=== PATIENT | female | born 1955 | race Caucasian/White ===

== ENCOUNTER 2017-12-24 15:50 | Inpatient (IN) | payer OTHER ==
--- NOTE | 2017-12-24 16:59 | ED ---
General Adult HPI - General Chief complaint: Abdominal Pain Stated complaint: Not eating Time Seen by Provider: 12/24/17 16:16 Source: patient, family, RN notes reviewed Mode of arrival: ambulatory Limitations: no limitations - History of Present Illness Initial comments: This is a 62-year-old female with a history of smoking a history of cholecystectomy in the past who was apparently sent here by a family doctor for evaluation for a PEG tube in for admission. She apparently does not eat very much and this is gone on for years she has had a 7 pound weight loss in the last week or so she weighs 80 pounds. She states she has had fevers chills sweats slight cough no phlegm no dysuria hematuria. She states she does have pain when she eats. Per family information was supposedly been faxed here none is available at this time. She has been seen at [facility] in the past. No known history of thyroid disease no other modifying factors. - Related Data Home Medications Medication Instructions Recorded Confirmed Cyclobenzaprine [Flexeril] 10 mg PO BID PRN 12/24/17 12/24/17 Dicyclomine [Bentyl] 40 mg PO QID 12/24/17 12/24/17 Famotidine [Pepcid] 20 mg PO HS 12/24/17 12/24/17 Gabapentin [Neurontin] 300 mg PO BID 12/24/17 12/24/17 Loperamide [Imodium] 2 mg PO QID PRN 12/24/17 12/24/17 Metoprolol Succinate [Toprol XL] 25 mg PO DAILY 12/24/17 12/24/17 Ondansetron HCl [Zofran] 8 mg PO BID PRN 12/24/17 12/24/17 Pravastatin Sodium [Pravachol] 10 mg PO HS 12/24/17 12/24/17 Sennosides-Docusate Sodium 2 tab PO DAILY PRN 12/24/17 12/24/17 [Senokot-S] Sertraline [Zoloft] 100 mg PO DAILY 12/24/17 12/24/17 Allergies Allergy/AdvReac Type Severity Reaction Status Date / Time Penicillins Allergy Unknown Verified 12/24/17 16:38 Review of Systems ROS Statement: Those systems with pertinent positive or pertinent negative responses have been documented in the HPI. ROS Other: All systems not noted in ROS Statement are negative. Past Medical History Past Medical History: No Reported History History of Any Multi-Drug Resistant Organisms: None Reported Past Surgical History: Section, Cholecystectomy Past Psychological History: No Psychological Hx Reported Smoking Status: Current every day smoker Past Alcohol Use History: None Reported Past Drug Use History: None Reported General Exam - General Exam Comments Initial Comments: This is a well-developed asthenic appearing female who does appear did demonstrate some wasting and is awake and alert Limitations: no limitations General appearance: alert Head exam: Present: atraumatic, normocephalic, normal inspection Eye exam: Present: normal appearance, PERRL, EOMI. Absent: scleral icterus, conjunctival injection, periorbital swelling ENT exam: Present: mucous membranes dry Neck exam: Present: normal inspection. Absent: tenderness, meningismus, lymphadenopathy Respiratory exam: Present: normal lung sounds bilaterally. Absent: respiratory distress, wheezes, rales, rhonchi, stridor Cardiovascular Exam: Present: regular rate, normal rhythm, normal heart sounds. Absent: systolic murmur, diastolic murmur, rubs, gallop, clicks GI/Abdominal exam: Present: soft, normal bowel sounds. Absent: distended, tenderness, guarding, rebound, rigid Extremities exam: Present: normal inspection, full ROM, normal capillary refill. Absent: tenderness, pedal edema, joint swelling, calf tenderness Back exam: Present: normal inspection Neurological exam: Present: alert, oriented X3, CN II-XII intact Psychiatric exam: Present: normal affect, normal mood Skin exam: Present: warm, dry, intact, normal color. Absent: rash Course Vital Signs 12/24/17 12/24/17 12/24/17 16:07 19:18 19:29 Temperature 98.5 F Pulse Rate 78 55 L Pulse Rate [ 62 Right Sitting Pulse Oximetery ] Pulse Rate [ 55 L Right Standing Pulse Oximetery ] Pulse Rate [ 56 L Right Supine Pulse Oximetery ] Respiratory 22 18 Rate Blood Pressure 102/64 100/56 Blood Pressure 112/56 [Right Arm Sitting] Blood Pressure 88/58 [Right Arm Standing] Blood Pressure 124/59 [Right Arm Supine] O2 Sat by Pulse 97 98 Oximetry - Reevaluation(s) Reevaluation #1: 12/24/17 21:03 The patient was complaining of lower abdominal pain but she was also noted be eating a donut at the time. Additionally the patient did not do well on her orthostatic changes. EKG Findings - EKG Results: EKG: interpreted by ZENA, sinus rhythm (Sinus rhythm a 61. Interval 134 QRS duration 70 QT since QTC of 14/420 possible left atrial enlargement anterior changes are nonspecific with poor R-wave progression) Medical Decision Making - Medical Decision Making I did discuss findings with patient and her family member. Patient will be admitted for IV hydration and evaluation of failure to thrive. I did discuss the case with Dr. Scott - Lab Data Result diagrams: 12/24/17 17:20 12/24/17 17:20 Lab Results 12/24/17 12/24/17 12/24/17 Range/Units 17:15 17:20 17:20 WBC (3.8-10.6) k/uL RBC (3.80-5.40) m/uL Hgb (11.4-16.0) gm/dL Hct (34.0-46.0) % MCV (80.0-100.0) fL MCH (25.0-35.0) pg MCHC (31.0-37.0) g/dL RDW (11.5-15.5) % Plt Count (150-450) k/uL Neutrophils % % Lymphocytes % % Monocytes % % Eosinophils % % Basophils % % Neutrophils # (1.3-7.7) k/uL Lymphocytes # (1.0-4.8) k/uL Monocytes # (0-1.0) k/uL Eosinophils # (0-0.7) k/uL Basophils # (0-0.2) k/uL Sodium 137 (137-145) mmol/L Potassium 4.5 (3.5-5.1) mmol/L Chloride 100 (98-107) mmol/L Carbon Dioxide 27 (22-30) mmol/L Anion Gap 10 mmol/L BUN 22 H (7-17) mg/dL Creatinine 0.90 (0.52-1.04) mg/dL Est GFR (CKD-EPI)AfAm 80 (>60 ml/min/1.73 sqM) Est GFR (CKD-EPI)NonAf 70 (>60 ml/min/1.73 sqM) Glucose 92 (74-99) mg/dL Plasma Lactic Acid Ric (0.7-2.0) mmol/L Calcium 9.2 (8.4-10.2) mg/dL Magnesium 2.5 H (1.6-2.3) mg/dL Total Bilirubin 0.1 L (0.2-1.3) mg/dL AST 24 (14-36) U/L ALT 27 (9-52) U/L Alkaline Phosphatase 71 (38-126) U/L Total Creatine Kinase 42 (30-135) U/L CK-MB (CK-2) <0.2 (0.0-2.4) ng/mL CK-MB (CK-2) Rel Index Troponin I <0.012 (0.000-0.034) ng/mL Total Protein 6.3 (6.3-8.2) g/dL Albumin 3.7 (3.5-5.0) g/dL Amylase 63 (30-110) U/L Lipase 108 (23-300) U/L TSH 0.957 (0.465-4.680) mIU/L Urine Color Light Yellow Urine Appearance Clear (Clear) Urine pH 6.0 (5.0-8.0) Ur Specific [place] 1.007 (1.001-1.035) Urine Protein Negative (Negative) Urine Glucose (UA) Negative (Negative) Urine Ketones Negative (Negative) Urine Blood Negative (Negative) Urine Nitrite Negative (Negative) Urine Bilirubin Negative (Negative) Urine Urobilinogen <2.0 (<2.0) mg/dL Ur Leukocyte Esterase Small H (Negative) Urine RBC 1 (0-5) /hpf Urine WBC 3 (0-5) /hpf Ur Squamous Epith Cells 7 H (0-4) /hpf Urine Bacteria Rare H (None) /hpf 12/24/17 12/24/17 Range/Units 17:20 17:20 WBC 10.8 H (3.8-10.6) k/uL RBC 4.55 (3.80-5.40) m/uL Hgb 14.1 (11.4-16.0) gm/dL Hct 43.5 (34.0-46.0) % MCV 95.6 (80.0-100.0) fL MCH 30.9 (25.0-35.0) pg MCHC 32.3 (31.0-37.0) g/dL RDW 13.4 (11.5-15.5) % Plt Count 374 (150-450) k/uL Neutrophils % 70 % Lymphocytes % 22 % Monocytes % 5 % Eosinophils % 1 % Basophils % 0 % Neutrophils # 7.5 (1.3-7.7) k/uL Lymphocytes # 2.4 (1.0-4.8) k/uL Monocytes # 0.5 (0-1.0) k/uL Eosinophils # 0.1 (0-0.7) k/uL Basophils # 0.0 (0-0.2) k/uL Sodium (137-145) mmol/L Potassium (3.5-5.1) mmol/L Chloride (98-107) mmol/L Carbon Dioxide (22-30) mmol/L Anion Gap mmol/L BUN (7-17) mg/dL Creatinine (0.52-1.04) mg/dL Est GFR (CKD-EPI)AfAm (>60 ml/min/1.73 sqM) Est GFR (CKD-EPI)NonAf (>60 ml/min/1.73 sqM) Glucose (74-99) mg/dL Plasma Lactic Acid Ric 1.1 (0.7-2.0) mmol/L Calcium (8.4-10.2) mg/dL Magnesium (1.6-2.3) mg/dL Total Bilirubin (0.2-1.3) mg/dL AST (14-36) U/L ALT (9-52) U/L Alkaline Phosphatase (38-126) U/L Total Creatine Kinase (30-135) U/L CK-MB (CK-2) (0.0-2.4) ng/mL CK-MB (CK-2) Rel Index Troponin I (0.000-0.034) ng/mL Total Protein (6.3-8.2) g/dL Albumin (3.5-5.0) g/dL Amylase (30-110) U/L Lipase (23-300) U/L TSH (0.465-4.680) mIU/L Urine Color Urine Appearance (Clear) Urine pH (5.0-8.0) Ur Specific [place] (1.001-1.035) Urine Protein (Negative) Urine Glucose (UA) (Negative) Urine Ketones (Negative) Urine Blood (Negative) Urine Nitrite (Negative) Urine Bilirubin (Negative) Urine Urobilinogen (<2.0) mg/dL Ur Leukocyte Esterase (Negative) Urine RBC (0-5) /hpf Urine WBC (0-5) /hpf Ur Squamous Epith Cells (0-4) /hpf Urine Bacteria (None) /hpf - Radiology Data Radiology results: report reviewed (I did review the imaging and reports retained fecal matter is noted), image reviewed Disposition Clinical Impression: Failure to thrive, Dehydration, Orthostatic hypotension Disposition: ADMITTED IP TO THIS [facility] Condition: Stable Referrals: Nonstaff,Physician [Primary Care Provider] - 1-2 days
[2017-12-24 17:23] LABS: Appearance,Urine Clear (Clear); Bacteria,Urine Rare /hpf; Bilirubin,Urine Negative (Negative); Blood,Urine Negative (Negative); Color,Urine Light Yellow; Glucose,Urine (UA) Negative (Negative); Ketones,Urine Negative (Negative); Leukocyte Esterase,Urine Small (Negative); Nitrite,Urine Negative (Negative); Protein,Urine Negative (Negative); RBC,Urine 1 /hpf (0-5); Specific Gravity,Urine 1.007 (1.001-1.035); Squamous Epithelial Cell,Urine 7 /hpf (0-4); Urobilinogen,Urine <2.0 mg/dL (<2.0); WBC,Urine 3 /hpf (0-5)
[2017-12-24 17:31] LABS: Basophils % (A) 0 %; Eosinophils # (A) 0.1 k/uL (0-0.7); Eosinophils % (A) 1 %; HCT 43.5 % (34.0-46.0); HGB 14.1 gm/dL (11.4-16.0); Lymphocytes # (A) 2.4 k/uL (1.0-4.8); Lymphocytes % (A) 22 %; MCH 30.9 pg (25.0-35.0); MCHC 32.3 g/dL (31.0-37.0); MCV 95.6 fL (80.0-100.0); Mean Platelet Volume 6.6; Monocytes # (A) 0.5 k/uL (0-1.0); Monocytes % (A) 5 %; Neutrophils # (A) 7.5 k/uL (1.3-7.7); Neutrophils % (A) 70 %; Platelet Count 374 k/uL (150-450); RBC 4.55 m/uL (3.80-5.40); RDW 13.4 % (11.5-15.5); WBC 10.8 k/uL (3.8-10.6)
[2017-12-24 17:48] LABS: Albumin 3.7 g/dL (3.5-5.0); Calcium 9.2 mg/dL (8.4-10.2); Magnesium 2.5 mg/dL (1.6-2.3); Potassium 4.5 mmol/L (3.5-5.1); Total Bilirubin 0.1 mg/dL (0.2-1.3); Total Protein 6.3 g/dL (6.3-8.2)
[2017-12-24 17:54] LABS: Creatine Kinase 42 U/L (30-135)
[2017-12-24 18:08] LABS: Creatine Kinase MB <0.2 ng/mL (0.0-2.4); Troponin I <0.012 ng/mL (0.000-0.034)
--- NOTE | 2017-12-24 18:59 | XR ---
EXAMINATION TYPE: XR chest 2V DATE OF EXAM: 12/24/2017 COMPARISON: NONE HISTORY: Cough TECHNIQUE: Frontal and lateral views of the chest are obtained. FINDINGS: Heart and mediastinum are normal. Lungs are clear of infiltrate. There is pulmonary hyperi nflation. Bony thorax is intact. IMPRESSION: There is some COPD. No active cardiopulmonary disease.
--- NOTE | 2017-12-24 19:00 | XR ---
EXAMINATION TYPE: XR KUB DATE OF EXAM: 12/24/2017 COMPARISON: NONE HISTORY: Abdominal pain TECHNIQUE: 2 views FINDINGS: There is no sign of intestinal obstruction or pneumoperitoneum. Fecal pattern is normal. Th ere is no evidence of a mass. There are clips apparently from cholecystectomy. There are no pathologi c calcifications over the kidneys. IMPRESSION: Nonacute abdomen.
--- NOTE | 2017-12-24 19:56 | CT ---
EXAMINATION TYPE: CT abdomen pelvis w con DATE OF EXAM: 12/24/2017 COMPARISON: NONE HISTORY: Abdominal pain and weight loss. CT DLP: 216.9 mGycm Automated exposure control for dose reduction was used. TECHNIQUE: Helical acquisition of images was performed from the lung bases through the pelvis. CONTRAST: Performed without Oral Contrast and with IV Contrast, patient injected with 100 mL of Isovue 300. FINDINGS: Lung bases are clear. There is no pleural effusion. Heart size is normal. Liver spleen pancreas appear normal. There are clips from cholecystectomy. Bile ducts are not dilated . Kidneys show satisfactory contrast opacification. There is no hydronephrosis. There is no adrenal mas s. There is no retroperitoneal adenopathy. There is retained fecal material throughout the colon. Oscar dder distends smoothly. There is no evidence of a pelvic mass. I see no bony destructive process. Hys terectomy is noted. There is no sign of free air. Abdominal aorta is atheromatous. Appendix is not se en. There is no sign of appendicitis. There is no intestinal wall thickening. IMPRESSION: MODERATE CONSTIPATION.
[2017-12-24] MEDS ORDERED: ACETAMINOPHEN TAB 325 MG TAB PO PRN (21:05)
[2017-12-24] MEDS ORDERED: NALOXONE 0.4 MG/ML 1 ML VIAL IV PRN (21:05)
[2017-12-24] MEDS ORDERED: SODIUM CHLORIDE 0.9% 500 ML IV STA (21:06)
[2017-12-24] MEDS: SODIUM CHLORIDE 0.9% 1,000 ML IV SCH (21:39)
[2017-12-24 22:28] VITALS: BMI 13.6
[2017-12-24] MEDS ORDERED: SENNOSIDES-DOCUSATE SODIUM 1 EACH TAB PO PRN (22:33)
[2017-12-24] MEDS ORDERED: COSYNTROPIN 0.25 MG VIAL IVP ONE (23:01)
--- NOTE | 2017-12-24 23:08 | P.HPIM ---
History of Present Illness H&P Date: 12/24/17 Chief Complaint: Failure to thrive 62-year-old female with history of hypertension and CAD. Patient transferred from [place] to our hospital for evaluation for PEG tube insertion due to failure to thrive. Patient's telling me that over the past year she's been suffering from frequent constipation and abdominal pain which was preventing her from eating. She said every time she eats she will get constipated and would suffer so she just quit eating. She has lost over 40 pounds over the past year. She reported that her dad had been diagnosed with colon cancer at age of 72. She had a colonoscopy done a year ago and was found to have multiple polyps but there is no report of cancer. Patient otherwise currently denies any chest pain or trouble breathing denies any dizziness or lightheadedness she denies any nausea or vomiting she denies any GI bleeding. In the emergency department CAT scan of the abdomen was performed showed constipation. Her blood work was pre-much unremarkable. However her orthostatic vital signs were positive for which she was admitted under observation for further testing and evaluation and to receive some IV fluids. Patient reports that her normal bowel habits is once a week but this could be also due to not eating. Patient also reports vomiting once daily days ago which was yellowish in color. Denies any coffee-ground vomiting or blood. Patient is a heavy smoker but she denies any hemoptysis or shortness of breath. She currently reports abdominal pain on the right side of the abdomen 10 out of 10 severity colicky comes and goes nonradiating no relieving or aggravating factor usually aggravated by food she's not eating at this time. Patient also admits to hyperpigmentation of her skin. Review of Systems Pertinent positives as noted in HPI. All other systems were reviewed and are negative Past Medical History Past Medical History: No Reported History, Coronary Artery Disease (CAD), Hypertension History of Any Multi-Drug Resistant Organisms: None Reported Past Surgical History: Section, Cholecystectomy Past Psychological History: No Psychological Hx Reported Smoking Status: Current every day smoker Past Alcohol Use History: None Reported Past Drug Use History: None Reported - Past Family History Father Additional Family Medical History / Comment(s): Colon cancer at age of 72 Medications and Allergies Home Medications and Allergies Comment(s): Review Home Medications Medication Instructions Recorded Confirmed Type Cyclobenzaprine [Flexeril] 10 mg PO BID PRN 12/24/17 12/24/17 History Dicyclomine [Bentyl] 40 mg PO QID 12/24/17 12/24/17 History Famotidine [Pepcid] 20 mg PO HS 12/24/17 12/24/17 History Gabapentin [Neurontin] 300 mg PO BID 12/24/17 12/24/17 History Loperamide [Imodium] 2 mg PO QID PRN 12/24/17 12/24/17 History Metoprolol Succinate [Toprol XL] 25 mg PO DAILY 12/24/17 12/24/17 History Ondansetron HCl [Zofran] 8 mg PO BID PRN 12/24/17 12/24/17 History Pravastatin Sodium [Pravachol] 10 mg PO HS 12/24/17 12/24/17 History Sennosides-Docusate Sodium 2 tab PO DAILY PRN 12/24/17 12/24/17 History [Senokot-S] Sertraline [Zoloft] 100 mg PO DAILY 12/24/17 12/24/17 History Allergies Allergy/AdvReac Type Severity Reaction Status Date / Time Penicillins Allergy Unknown Verified 12/24/17 16:38 Physical Exam Vitals: Vital Signs Temp Pulse Pulse Pulse Pulse Resp BP 12/24/17 21:50 93/56 12/24/17 21:39 97.6 F 53 L 18 87/52 12/24/17 19:29 62 55 L 56 L 12/24/17 19:18 55 L 18 100/56 12/24/17 16:07 98.5 F 78 22 102/64 BP BP BP Pulse Ox 12/24/17 21:50 12/24/17 21:39 99 12/24/17 19:29 112/56 88/58 124/59 12/24/17 19:18 98 12/24/17 16:07 97 Intake and Output 12/24/17 12/24/17 12/24/17 06:59 14:59 22:59 Other: Voiding Method Toilet Weight 36 kg Constitutional: No acute distress, conversant, pleasant, cachectic Eyes: Anicteric sclerae, moist conjunctiva, no lid-lag Pupils equal round reactive to light ENMT: NC/AT Oropharynx clear, no erythema, or exudates, very poor oral hygiene Neck: Supple, FROM, no masses, or JVD No carotid bruits No thyromegaly Lungs: Clear to auscultation Clear to percussion Normal respiratory effort, no accessory muscle use Cardiovascular: Heart regular in rate and rhythm, No murmurs, gallops, or rubs No peripheral edema Abdominal: Soft Discomfort to palpation of the right lower quadrant of the abdomen and right flank, no guarding, rebound or rigidity Abdomen moving with respiration Normoactive bowel sounds No hepatomegaly, No splenomegaly No palpable mass No abdominal wall hernia noted Skin: Hyperpigmentation of patient skin sparing hairline Normal temperature, tone, texture, turgor No induration No subcutaneous nodules No rash, lesions No ulcers Extremities: No digital cyanosis No clubbing Pedal pulses intact and symmetrical Radial pulses intact and symmetrical No calf tenderness Psychiatric: Alert and oriented to person, place and time Appropriate affect fair judgment Neuro Muscles Strength 4/5 in all 4 extremities Sensation to light touch grossly present throughout Cranial nerves II-XII grossly intact No focal sensory deficits Lymphatics: no palpable cervical or supraclavicular , or inguinal lymph nodes Results CBC & Chem 7: 12/24/17 17:20 12/24/17 17:20 Labs: Abnormal Lab Results - Last 24 Hours (Table) 12/24/17 12/24/17 12/24/17 Range/Units 17:15 17:20 17:20 WBC 10.8 H (3.8-10.6) k/uL BUN 22 H (7-17) mg/dL Magnesium 2.5 H (1.6-2.3) mg/dL Total Bilirubin 0.1 L (0.2-1.3) mg/dL Ur Leukocyte Esterase Small H (Negative) Ur Squamous Epith Cells 7 H (0-4) /hpf Urine Bacteria Rare H (None) /hpf Thrombosis Risk Factor Assmnt - Choose All That Apply Each Risk Factor Represents 2 Points: Age 61-74 years Thrombosis Risk Factor Assessment Total Risk Factor Score: 2 Thrombosis Risk Factor Assessment Level: Low Risk Assessment and Plan Assessment: 62-year-old female with history of CAD and hypertension, patient is admitted under observation expected to be for less than 2 nights for evaluation of failure to thrive and orthostatic hypotension with suspected [place] disease and also for evaluation for PEG tube insertion. His transfer to a facility from [place], as she saw her PCP who referred her for evaluation for PEG tube insertion due to failure to thrive it lost poor appetite. She had a CAT scan done in the ER due to abdominal pain showed constipation. Plan: #High suspicion for [place] disease Due to orthostatic hypotension Elevated potassium Skin hyperpigmentation Weight loss GI symptoms Check random cortisol level and ACTH level Check morning cortisol level Cosyntropin test in the morning followed by cortisone level after 30 and 60 minutes #Failure to thrive patient claims to have poor appetite for over a year now Patient lost 40 pounds Had colonoscopy a year ago positive for multiple polyps nor report cancer, positive history of family member with colon cancer in her father Avoid refeeding syndrome Encourage by mouth intake Follow up phosphorus, magnesium, and electrolytes #Hypertension currently with orthostatic hypotension This is possibly due to suspected [place] disease Continue metoprolol with hold parameters Patient given 1 L normal saline bolus Check morning orthostatic vitals #History of CAD Continue statin and metoprolol Start patient on aspirin #DVT prophylaxis Heparin subcu 3 times a day #Depression Continue with Zoloft Surrogate decision-maker: Patient's son Jonathan CODE STATUS: Full code Discussed with: Patient, ER, Anticipated discharge: Observation was in [address]: Home A total of 50 minutes was spent on the care of this complex patient more than 50 % of the time was spent in counseling and care coordination.
[2017-12-24] MEDS ORDERED: SODIUM CHLORIDE 0.9% 1,000 ML IV ONE (23:09)
[2017-12-24] MEDS: FAMOTIDINE 20 MG TAB PO SCH (23:27)
[2017-12-24] MEDS: DICYCLOMINE 20 MG TAB PO SCH (23:27)
[2017-12-25] MEDS: ALPRAZolam 0.25 MG TAB PO SCH ×4 (02:13→20:09)
[2017-12-25] MEDS: HYDROcodone/APAP 5-325MG 1 EACH TAB PO PRN ×4 (05:47→20:33)
[2017-12-25] MEDS ORDERED: COSYNTROPIN 0.25 MG VIAL IVP ONE ×2 (06:05)
[2017-12-25 06:52] LABS: Basophils % (A) 0 %; Eosinophils # (A) 0.1 k/uL (0-0.7); Eosinophils % (A) 2 %; HCT 36.9 % (34.0-46.0); HGB 11.9 gm/dL (11.4-16.0); Lymphocytes # (A) 1.2 k/uL (1.0-4.8); Lymphocytes % (A) 20 %; MCH 31.2 pg (25.0-35.0); MCHC 32.4 g/dL (31.0-37.0); MCV 96.4 fL (80.0-100.0); Mean Platelet Volume 7.1; Monocytes # (A) 0.4 k/uL (0-1.0); Monocytes % (A) 7 %; Neutrophils # (A) 4.3 k/uL (1.3-7.7); Neutrophils % (A) 69 %; Platelet Count 254 k/uL (150-450); RBC 3.83 m/uL (3.80-5.40); RDW 13.7 % (11.5-15.5); WBC 6.3 k/uL (3.8-10.6)
[2017-12-25 07:01] LABS: ALT 29 U/L (9-52); AST 22 U/L (14-36); Albumin 2.7 g/dL (3.5-5.0); Alkaline Phosphatase 59 U/L (38-126); Anion Gap 4 mmol/L; Blood Urea Nitrogen 16 mg/dL (7-17); Calcium 8.2 mg/dL (8.4-10.2); Carbon Dioxide 26 mmol/L (22-30); Chloride 106 mmol/L (98-107); Glucose 86 mg/dL (74-99); Magnesium 2.4 mg/dL (1.6-2.3); Phosphorus 2.9 mg/dL (2.5-4.5); Sodium 136 mmol/L (137-145); Total Bilirubin <0.1 mg/dL (0.2-1.3); Total Protein 4.9 g/dL (6.3-8.2)
[2017-12-25] MEDS: METOPROLOL SUCCINATE (ER) 25 MG TAB.ER.24H PO SCH (08:21)
[2017-12-25] MEDS: DICYCLOMINE 20 MG TAB PO SCH ×4 (08:21→20:09)
[2017-12-25] MEDS: SERTRALINE 100 MG TAB PO SCH (08:21)
[2017-12-25] MEDS: GABAPENTIN 300 MG CAP PO SCH ×2 (08:21→20:09)
[2017-12-25] MEDS: ASPIRIN 81 MG PO SCH (08:22)
[2017-12-25] MEDS: SODIUM CHLORIDE 0.9% 1,000 ML IV SCH ×2 (10:00→20:10)
--- NOTE | 2017-12-25 10:35 | P.CONS ---
History of Present Illness - Reason for Consult Consult date: 12/25/17 PEG tube evaluation Requesting physician: Ajith Scott - History of Present Illness 62-year-old female transferred from [place] with reports of chronic abdominal pain IBS-C and anorexia for several years. The symptoms have been ongoing for several years and is interfering with her oral nutrition. Patient states she had her gallbladder removed several years ago and postoperatively had increased pain and difficulty maintaining a diet keeping her weight on. She is cachectic with a BMI of 13.6. Denies hematemesis hematochezia melena. Patient states she chronically has abdominal pain fluctuating with chronic constipation and sometimes diarrhea. She reports undergoing an EGD colonoscopy within the past year for evaluation of abdominal pain and decreased appetite to her memory was unremarkable. Consult was requested for possible PEG tube insertion for nutrition support. No history of gastric or intestinal surgeries. White count 6.3. Hemoglobin 11.9. Magnesium 2.4. BUN 16 creatinine 0.8. Sodium 136. Potassium 5.0. CT abdomen reported moderate constipation. Review of Systems Constitutional: Denies fever, chills, sweats, weight gain, or loss. HEENT: Negative for migraines, blurred vision or loss, earaches, drainage, tinnitus, oral mucosal lesions, dysphagia, or odynophagia. CARDIAC: Negative for chest pain, arrhythmias, or palpitation. RESPIRATORY: Negative for shortness of breath, hemoptysis, cough, or sputum production. GI: See HPI for pertinent findings. : Negative for hematuria, urgency, frequency, polyuria, or dysuria. GYNc: Negative vaginal discharge. MUSCULOSKELETAL: Negative for muscle aches, swelling, arthritis, and arthralgias. NEUROLOGIC: Negative for stroke or TIA. ENDOCRINE: Negative for thyroid problems. SKIN: Negative for rash or itching. PSYCHIATRIC: Negative history for depression and anxiety Past Medical History Past Medical History: No Reported History, Coronary Artery Disease (CAD), Hypertension History of Any Multi-Drug Resistant Organisms: None Reported Past Surgical History: Section, Cholecystectomy Past Psychological History: No Psychological Hx Reported Smoking Status: Current every day smoker Past Alcohol Use History: None Reported Past Drug Use History: None Reported - Past Family History Father Additional Family Medical History / Comment(s): Colon cancer at age of 72 Medications and Allergies Home Medications Medication Instructions Recorded Confirmed Type Cyclobenzaprine [Flexeril] 10 mg PO BID PRN 12/24/17 12/24/17 History Dicyclomine [Bentyl] 40 mg PO QID 12/24/17 12/24/17 History Famotidine [Pepcid] 20 mg PO HS 12/24/17 12/24/17 History Gabapentin [Neurontin] 300 mg PO BID 12/24/17 12/24/17 History Loperamide [Imodium] 2 mg PO QID PRN 12/24/17 12/24/17 History Metoprolol Succinate [Toprol XL] 25 mg PO DAILY 12/24/17 12/24/17 History Ondansetron HCl [Zofran] 8 mg PO BID PRN 12/24/17 12/24/17 History Pravastatin Sodium [Pravachol] 10 mg PO HS 12/24/17 12/24/17 History Sennosides-Docusate Sodium 2 tab PO DAILY PRN 12/24/17 12/24/17 History [Senokot-S] Sertraline [Zoloft] 100 mg PO DAILY 12/24/17 12/24/17 History Allergies Allergy/AdvReac Type Severity Reaction Status Date / Time Penicillins Allergy Unknown Verified 12/24/17 16:38 Physical Exam Vitals: Vital Signs Temp Pulse Pulse Pulse Pulse Resp BP 12/25/17 06:21 97.5 F L 57 L 63 52 L 20 12/24/17 23:24 96.7 F L 51 L 20 12/24/17 21:50 93/56 12/24/17 21:39 97.6 F 53 L 18 87/52 12/24/17 19:29 62 55 L 56 L 12/24/17 19:18 55 L 18 100/56 12/24/17 16:07 98.5 F 78 22 102/64 BP BP BP Pulse Ox 12/25/17 06:21 124/68 96/63 126/66 99 12/24/17 23:24 78/36 99 12/24/17 21:50 12/24/17 21:39 99 12/24/17 19:29 112/56 88/58 124/59 12/24/17 19:18 98 12/24/17 16:07 97 Intake and Output 12/24/17 12/25/17 12/25/17 22:59 06:59 14:59 Other: Voiding Method Toilet Toilet # Voids 3 Weight 36 kg General appearance: The patient is alert, oriented, in no acute distress. Cachectic appearance. HET: Head is normocephalic and atraumatic. Pupils are equal and reactive. Oropharynx is clear without lesions. Neck: Supple without lymphadenopathy. Trachea midline. Heart: S1 S2. Regular rate and rhythm. Lungs: No crackles or wheezes are heard. Abdomen: Soft, nontender, nondistended with bowel sounds. No peritoneal signs. No palpable organomegaly or masses. Extremities: Normal skin color and turgor. No cyanosis, rash, ulceration, clubbing, or edema. Radial and pedal pulses are 2/4 bilaterally. Neurological: No focal deficits. Strength and sensation are grossly intact. Results CBC & Chem 7: 12/25/17 06:10 12/25/17 06:10 Labs: Abnormal Lab Results - Last 24 Hours (Table) 12/24/17 12/24/17 12/24/17 Range/Units 17:15 17:20 17:20 WBC 10.8 H (3.8-10.6) k/uL Sodium (137-145) mmol/L BUN 22 H (7-17) mg/dL Calcium (8.4-10.2) mg/dL Magnesium 2.5 H (1.6-2.3) mg/dL Total Bilirubin 0.1 L (0.2-1.3) mg/dL Total Protein (6.3-8.2) g/dL Albumin (3.5-5.0) g/dL Ur Leukocyte Esterase Small H (Negative) Ur Squamous Epith Cells 7 H (0-4) /hpf Urine Bacteria Rare H (None) /hpf 12/25/17 Range/Units 06:10 WBC (3.8-10.6) k/uL Sodium 136 L (137-145) mmol/L BUN (7-17) mg/dL Calcium 8.2 L (8.4-10.2) mg/dL Magnesium 2.4 H (1.6-2.3) mg/dL Total Bilirubin <0.1 L (0.2-1.3) mg/dL Total Protein 4.9 L (6.3-8.2) g/dL Albumin 2.7 L (3.5-5.0) g/dL Ur Leukocyte Esterase (Negative) Ur Squamous Epith Cells (0-4) /hpf Urine Bacteria (None) /hpf CT scan - abdomen: report reviewed (Dr. Mccarthy) Assessment and Plan (1) Cachexia Current Visit: Yes Status: Acute Code(s): R64 - CACHEXIA SNOMED Code(s): 153353747 (2) Chronic abdominal pain Current Visit: Yes Status: Acute Code(s): R10.9 - UNSPECIFIED ABDOMINAL PAIN ; G89.29 - OTHER CHRONIC PAIN SNOMED Code(s): 219098899 (3) Protein-calorie malnutrition, severe Current Visit: Yes Status: Acute Code(s): E43 - UNSPECIFIED SEVERE PROTEIN- CALORIE MALNUTRITION SNOMED Code(s): 026666061 (4) Chronic constipation Current Visit: Yes Status: Acute Code(s): K59.09 - OTHER CONSTIPATION SNOMED Code(s): 552061818 (5) History of IBS Current Visit: Yes Status: Acute Code(s): Z87.19 - PERSONAL HISTORY OF OTHER DISEASES OF THE DIGESTIVE SYSTEM SNOMED Code(s): 90640834178447 Plan: 1. PEG tube insertion was discussed with patient this time she is hesitant about insertion she is unsure if that is what she wants. Patient was advised insertion of PEG tube would not guarantee improvement in her abdominal pain or constipation. 2. Advise daily stool softeners. 3. Dietitian consult with calorie count. Ensure 3 times a day with meals. Prealbumin assessment. Endoscopic placement of feeding tube is not planned at this time we'll follow with you. 4. Continue with Ginny. Thank you for this kind referral and the opportunity to participate in the care of your patient. This consultation was discussed with Dr. Mccarthy. The impression and plan of care have been directed as dictated.
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
--- NOTE | 2017-12-25 20:06 | P.PN ---
Subjective Progress Note Date: 12/25/17 Principal diagnosis: abdominal pain and weight loss Patient is a 62-year-old female with a past medical history of coronary artery disease, hypertension, and chronic abdominal pain who was transferred to our facility from [place] for evaluation of abdominal pain and PEG tube insertion. Patient seen and examined at bedside. She states that she has been struggling with abdominal pain for the last 10-12 years. She reports multiple recent hospitalizations requiring antibiotics were they told her she had an infection, but it never gets better. She states she had a recent colonoscopy however we are unable to locate records. She reports that she is unable to eat secondary to chronic abdominal pain and that she avoids food. She denies any vomiting. She taking that she takes loperamide as an appetite stimulant. We went over her medications and she is clearly indications for the rest when I told her that Loperaminde is for diarrhea she seemed concerned. We discussed the possibility of [place]'s disease and at the time of my evaluation with her and is awaiting a call back from Dr. Enciso. Objective - Vital Signs Vital signs: Vital Signs Temp 96.8 F L 12/25/17 15:00 Pulse 63 12/25/17 15:00 Resp 18 12/25/17 15:00 BP 113/67 12/25/17 15:00 Pulse Ox 100 12/25/17 15:00 Intake & Output 12/25/17 12/25/17 12/26/17 06:59 18:59 06:59 Weight 36 kg 36 kg Other: Voiding Method Toilet # Voids 3 3 - Exam General: non toxic, no distress, ears older than stated age, cachectic Derm: Bronzed appearance of the skin with areas of vitiligo warm, dry Head: atraumatic, normocephalic, symmetric, temporal wasting Eyes: EOMI, no lid lag, anicteric sclera Mouth: no lip lesion, mucus membranes dry Cardiovascular: S1S2 reg, no murmur, positive posterior tibial pulse bilateral, Lungs: CTA bilateral, no rhonchi, no rales , no accessory muscle use Abdominal: soft, + tender to palpation epigastric, no guarding, no appreciable organomegaly Ext: no gross muscle atrophy, no edema, no contractures Neuro: CN II-XI grossly intact, no focal neuro deficits Psych: Alert, oriented, appropriate affect - Labs CBC & Chem 7: 12/25/17 06:10 12/25/17 06:10 Labs: Abnormal Lab Results - Last 24 Hours (Table) 12/25/17 Range/Units 06:10 Sodium 136 L (137-145) mmol/L Calcium 8.2 L (8.4-10.2) mg/dL Magnesium 2.4 H (1.6-2.3) mg/dL Total Bilirubin <0.1 L (0.2-1.3) mg/dL Total Protein 4.9 L (6.3-8.2) g/dL Albumin 2.7 L (3.5-5.0) g/dL Assessment and Plan Assessment: Failure to thrive with cachexia - patient does not want peg tube at this time - encourage oral intake - addisons disease ruled out, Case discussed with Dr. Enciso - Patient lost 40 pounds - Had colonoscopy a year ago positive for multiple polyps nor report cancer - Avoid refeeding syndrome Acute on chronic abdominal pain Moderate constipation - moderate constipation of CT abd and pelvis - She had EGD and colon here in 2007, no record of these at [facility] - add miralax, on senna - d/c bentyl, colace, lopermide - if no medical reason psych has suggested it may be somatic symptom disorder Orthostatic hypotension - likely due to dehydraiton - IVF - recheck in AM - history of hypertension, Continue metoprolol with hold parameters Partially treated major depression - psych recs - xanax and zoloft CAD - statin, metoprolol, ASA DVT prophylaxis: heparin Discussed with: Patient, Dr. Enciso Anticipated discharge: 24-[address]: home A total of 35 minutes was spent on the care of this complex patient more than 50 % of the time was spent in counseling and care coordination.
[2017-12-25] MEDS: FAMOTIDINE 20 MG TAB PO SCH (20:09)
[2017-12-25] MEDS: PRAVASTATIN SODIUM 20 MG TAB PO SCH (20:09)
[2017-12-25] MEDS: SENNOSIDES-DOCUSATE SODIUM 1 EACH TAB PO SCH (20:09)
[2017-12-25] MEDS: POLYETHYLENE GLYCOL 3350 17 GM POWD.PACK PO SCH (21:47)
[2017-12-26] MEDS: HYDROcodone/APAP 5-325MG 1 EACH TAB PO PRN ×5 (02:20→21:45)
[2017-12-26 08:28] LABS: HGB 11.4 gm/dL (11.4-16.0); MCH 30.6 pg (25.0-35.0); MCHC 31.7 g/dL (31.0-37.0); MCV 96.7 fL (80.0-100.0); Mean Platelet Volume 7.1; Platelet Count 269 k/uL (150-450); RBC 3.72 m/uL (3.80-5.40); RDW 13.4 % (11.5-15.5); WBC 8.9 k/uL (3.8-10.6)
[2017-12-26 08:40] LABS: Anion Gap 4 mmol/L; Blood Urea Nitrogen 10 mg/dL (7-17); Calcium 8.1 mg/dL (8.4-10.2); Carbon Dioxide 24 mmol/L (22-30); Chloride 110 mmol/L (98-107); Glucose 79 mg/dL (74-99); Magnesium 2.3 mg/dL (1.6-2.3); Potassium 4.7 mmol/L (3.5-5.1); Sodium 138 mmol/L (137-145)
[2017-12-26] MEDS: DICYCLOMINE 20 MG TAB PO SCH ×4 (08:41→21:42)
[2017-12-26] MEDS: POLYETHYLENE GLYCOL 3350 17 GM POWD.PACK PO SCH (08:41)
[2017-12-26] MEDS: SERTRALINE 100 MG TAB PO SCH (08:41)
[2017-12-26] MEDS: METOPROLOL SUCCINATE (ER) 25 MG TAB.ER.24H PO SCH (08:41)
[2017-12-26] MEDS: ASPIRIN 81 MG PO SCH (08:41)
[2017-12-26] MEDS: GABAPENTIN 300 MG CAP PO SCH ×2 (08:41→21:42)
[2017-12-26] MEDS: SENNOSIDES-DOCUSATE SODIUM 1 EACH TAB PO SCH ×2 (08:42→21:41)
[2017-12-26] MEDS: ALPRAZolam 0.25 MG TAB PO SCH ×3 (09:36→21:42)
--- NOTE | 2017-12-26 10:11 | PN ---
PROGRESS NOTE DATE OF SERVICE: 12/26/2017 The patient is a 62-year-old pleasant white female who was transferred from [facility] for possible EGD and a PEG tube placement. The patient apparently has lost 30 pounds in the last 6 months duration. She has been complaining of abdominal discomfort, occasional nausea, vomiting. She did have a CT of the abdomen and pelvis done as a part of workup for weight loss, which was unremarkable other than constipation. The patient does say that she has been constipated for several years. Usually has a bowel movement every 2 weeks. Takes MiraLAX on the outpatient basis. The last bowel movement she had was about 4 or 5 days ago. She did have a psychiatric evaluation yesterday and she was diagnosed with major depressive disorder and she was advised to continue on Zoloft and Xanax. PHYSICAL EXAMINATION: On physical examination, she appears comfortable no apparent distress. Vital signs are stable. Blood pressure is 113/67, pulse rate 63, temperature 96.8. HEENT examination unremarkable. Conjunctivae are pink. Sclerae anicteric. Oral cavity, no lesions. NECK: No JVD or lymph node enlargement. Chest was clear to auscultation. HEART: Regular rate and rhythm. ABDOMEN: Soft. Bowel sounds are positive. No organomegaly. EXTREMITIES: No pedal edema. SKIN: No rashes. NEURO: Alert and oriented x3. No focal deficits. LABS: Labs done from today, CBC with differential count is within normal limits. Basic metabolic panel is within normal limits. IMPRESSION: 1. This is a lady who has been having progressive weight loss for the last 6 months duration secondary to decreased appetite, some abdominal discomfort associated with nausea, vomiting for the last few weeks. She was transferred from [facility] for possible upper endoscopy with PEG tube placement. The patient says that the reason she cannot eat is because of abdominal discomfort. She has been tried on various PPIs in the past including Prilosec which she has been taking for the last several months with no help. She describes the pain mostly in the epigastric area associated with nausea, which precludes her from eating. Rule out any upper gastrointestinal pathology. She recalls having an upper endoscopy 2 years ago that was unremarkable. 2. Chronic constipation. 3. Major depressive disorder for which Psychiatry is following the patient closely. RECOMMENDATIONS: I had a lengthy discussion with the patient and at this time she is not a candidate for an upper endoscopy with PEG tube placement. I encouraged her to consider soft small frequent meals and protein supplements at this time. Because she is complaining of abdominal discomfort with nausea, vomiting, I will proceed with an upper endoscopy tomorrow to rule out any upper GI pathology and gastric outlet obstruction. Continue with current medications including PPIs and increase MiraLAX to 1 scoop twice daily for the constipation. Further recommendations will follow based on the upper endoscopy results. Thank you for this consultation. STEF / LAURA: [id number] /
[2017-12-26] MEDS: SODIUM CHLORIDE 0.9% 1,000 ML IV SCH ×2 (12:44→23:51)
--- NOTE | 2017-12-26 14:21 | P.PN ---
Subjective Progress Note Date: 12/26/17 Principal diagnosis: abdominal pain, N/V Feels the same like before, continues to have abdominal pain, nausea and vomiting. Objective - Vital Signs Vital signs: Vital Signs Temp 96.4 F L 12/26/17 05:45 Pulse 57 L 12/26/17 05:45 Resp 20 12/26/17 05:45 BP 108/57 12/26/17 05:45 Pulse Ox 97 12/26/17 05:45 Intake & Output 12/25/17 12/26/17 12/26/17 18:59 06:59 18:59 Intake Total 400 Balance 400 Weight 36 kg Intake: Oral 400 Other: Voiding Method Toilet # Voids 3 1 - Exam General: non toxic, no distress, ears older than stated age, cachectic Derm: Bronzed appearance of the skin with areas of vitiligo warm, dry Head: atraumatic, normocephalic, symmetric, temporal wasting Eyes: EOMI, no lid lag, anicteric sclera Mouth: no lip lesion, mucus membranes dry Cardiovascular: S1S2 reg, no murmur, positive posterior tibial pulse bilateral, Lungs: CTA bilateral, no rhonchi, no rales , no accessory muscle use Abdominal: soft, + tender to palpation epigastric, no guarding, no appreciable organomegaly Ext: no gross muscle atrophy, no edema, no contractures Neuro: CN II-XI grossly intact, no focal neuro deficits Psych: Alert, oriented, appropriate affect - Labs CBC & Chem 7: 12/26/17 08:03 12/26/17 08:03 Labs: Abnormal Lab Results - Last 24 Hours (Table) 12/26/17 12/26/17 Range/Units 08:03 08:03 RBC 3.72 L (3.80-5.40) m/uL Chloride 110 H (98-107) mmol/L Calcium 8.1 L (8.4-10.2) mg/dL Phosphorus 2.0 L (2.5-4.5) mg/dL Assessment and Plan Plan: Failure to thrive with cachexia, Acute on chronic abdominal pain Moderate constipation - GI evaluation---no peg tube indicated - addisons disease ruled out, Case discussed with Dr. Enciso - Plan for EGD in am - Had colonoscopy a year ago positive for multiple polyps nor report cancer - Continue miralax twice a day, senna - if no medical reason psych has suggested it may be somatic symptom disorder Partially treated major depression - psych recs - xanax and zoloft CAD/Essential htn: - statin, metoprolol, ASA DVT prophylaxis: heparin Discussed with: Patient, Dr. Enciso Anticipated discharge: 24-[address]: home
[2017-12-26] MEDS: PRAVASTATIN SODIUM 20 MG TAB PO SCH (21:42)
[2017-12-26] MEDS: FAMOTIDINE 20 MG TAB PO SCH (21:42)
[2017-12-26 23:28] VITALS: RESP 20
[2017-12-27 06:12] VITALS: BP 142/75; PULSE 59; TEMP 96.9
[2017-12-27] MEDS ORDERED: PROPOFOL 10 MG/ML 20 ML VIAL IV ONE (08:52)
[2017-12-27] MEDS ORDERED: LIDOCAINE 1% INJ 10MG/ML (20 ML MDV) ONE (08:52)
[2017-12-27] MEDS ORDERED: IV FLUID CONTINUATION 1,000 ML IV ONE (09:09)
--- NOTE | 2017-12-27 09:14 | P.PCN ---
Date of Procedure: 12/27/17 Procedure(s) Performed: BRIEF HISTORY: Patient is a 62-year-old, pleasant, white female, admitted hospital because of poor oral intake progressive weight loss of 30 pounds in the last 6 months duration associated with intermittent epigastric pain and nausea vomiting. We're consulted for an upper endoscopy with PEG tube placement. Instead she is scheduled for an upper endoscopy to rule out any upper GI pathology. PROCEDURE PERFORMED: Esophagogastroduodenoscopy with biopsy. PREOPERATIVE DIAGNOSIS: Abdominal pain, intermittent nausea vomiting and progressive weight loss of 30 pounds in the last 6 months duration. IV sedation per anesthesia. PROCEDURE: After informed consent was obtained, the patient was brought into the endoscopy unit. IV sedation was administered by Anesthesia under continuous monitoring. Initially the Olympus GIF-140 video endoscope was inserted into the mouth. Esophagus intubated without any difficulty. It was gradually advanced into the stomach and duodenum and carefully examined. The bulb and the second part of the duodenum appeared normal. The scope at this time was withdrawn to the stomach, adequately insufflated with air, and upon careful examination, mucosa of the antrum, had mild diffuse gastritis and biopsies were done from this area. The body, cardia and the fundus appeared normal. The scope was then withdrawn into the esophagus. The GE junction was located at 39 cm from the incisors. The esophagus appeared normal. There were no erosions or ulcerations seen and the patient tolerated the procedure well. IMPRESSION: 1. Mild antral gastritis. 2. No evidence of esophagitis, peptic ulcer disease or gastric outlet obstruction. RECOMMENDATIONS: The findings of this examination were discussed with the patient . She was encouraged to increase her oral intake. Recommend protein supplements. Small frequent meals. Dietary consult and calorie count for 3 days.
[2017-12-27] MEDS: SERTRALINE 100 MG TAB PO SCH (09:49)
[2017-12-27] MEDS: SENNOSIDES-DOCUSATE SODIUM 1 EACH TAB PO SCH (09:49)
[2017-12-27] MEDS: GABAPENTIN 300 MG CAP PO SCH (09:49)
[2017-12-27] MEDS: POLYETHYLENE GLYCOL 3350 17 GM POWD.PACK PO SCH (09:50)
[2017-12-27] MEDS: DICYCLOMINE 20 MG TAB PO SCH ×2 (09:50→14:05)
[2017-12-27] MEDS: METOPROLOL SUCCINATE (ER) 25 MG TAB.ER.24H PO SCH (09:50)
[2017-12-27] MEDS: ALPRAZolam 0.25 MG TAB PO SCH (09:50)
[2017-12-27] MEDS: HYDROcodone/APAP 5-325MG 1 EACH TAB PO PRN (09:50)
[2017-12-27] MEDS: ASPIRIN 81 MG PO SCH (09:53)
[2017-12-27] MEDS: SODIUM CHLORIDE 0.9% 1,000 ML IV SCH (12:10)
--- NOTE | 2017-12-27 13:56 | P.DS ---
Providers Date of admission: 12/25/17 14:13 Expected date of discharge: 12/27/17 Attending physician: Ajith Scott MD Consults: 12/24/17 22:50 Consult Physician Routine Consulting Provider: Anamika Mccarthy Consult Reason/Comments: Failure to thrive, evaluation for PEG tube insertion Do you want consulting provider notified?: Yes 12/24/17 23:02 Consult Physician Routine Consulting Provider: Girish Garcia Consult Reason/Comments: depression Do you want consulting provider notified?: Yes, Notify in am Primary care physician: Physician Nonstaff Hospital Course: 62-year-old female with history of hypertension and CAD was transferred from [place] to our hospital for evaluation for PEG tube insertion due to failure to thrive. Over the past year she's been suffering from frequent constipation, abdominal pain which was preventing her from eating. She reported abdominal pain on the right side of the abdomen 10 out of 10 in severity, colicky in nature, comes and goes nonradiating, no relieving factors but usually aggravated by food, due to that she's not eating at this time. She stated every time she eats she will get constipated and would suffer so she just quit eating. She normally has a bowel movement once every week. Patient also reports vomiting once daily days ago which was yellowish in color. Denies any coffee- ground vomiting or blood. She lost over 40 pounds over the past year. She reported that her dad was diagnosed with colon cancer at age of 72. She had a colonoscopy done a year ago and was found to have multiple polyps but there was no report of cancer. Patient otherwise denied any chest pain or trouble breathing, any dizziness or lightheadedness. In the emergency department CAT scan of the abdomen showed constipation. Her blood work was unremarkable. However her orthostatic vital signs were positive so she was subsequently admitted under observation for further testing and evaluation and to receive some IV fluids. She was maintained on IV fluids during the admission. She was seen by psychiatry service because of history of depression and she did not qualify for inpatient psychiatry admission. In addition she was seen by GI who did an upper scope which revealed mild antral gastritis. I discussed the case with GI who was okay with discharge. She will go home in a stable condition. She was encouraged to eat and I also advised her to ask primary care physician for something to stimulate her appetite. Patient Condition at Discharge: Stable Plan - Discharge Summary New Discharge Prescriptions: Continue Sertraline [Zoloft] 100 mg PO DAILY Pravastatin Sodium [Pravachol] 10 mg PO HS Metoprolol Succinate [Toprol XL] 25 mg PO DAILY Gabapentin [Neurontin] 300 mg PO BID Famotidine [Pepcid] 20 mg PO HS Dicyclomine [Bentyl] 40 mg PO QID Cyclobenzaprine [Flexeril] 10 mg PO BID PRN PRN Reason: Muscle Spasm Sennosides-Docusate Sodium [Senokot-S] 2 tab PO DAILY PRN PRN Reason: Constipation Ondansetron HCl [Zofran] 8 mg PO BID PRN PRN Reason: Nausea Loperamide [Imodium] 2 mg PO QID PRN PRN Reason: Loose Stool Discharge Medication List Cyclobenzaprine [Flexeril] 10 mg PO BID PRN 12/24/17 [History] Dicyclomine [Bentyl] 40 mg PO QID 12/24/17 [History] Famotidine [Pepcid] 20 mg PO HS 12/24/17 [History] Gabapentin [Neurontin] 300 mg PO BID 12/24/17 [History] Loperamide [Imodium] 2 mg PO QID PRN 12/24/17 [History] Metoprolol Succinate [Toprol XL] 25 mg PO DAILY 12/24/17 [History] Ondansetron HCl [Zofran] 8 mg PO BID PRN 12/24/17 [History] Pravastatin Sodium [Pravachol] 10 mg PO HS 12/24/17 [History] Sennosides-Docusate Sodium [Senokot-S] 2 tab PO DAILY PRN 12/24/17 [History] Sertraline [Zoloft] 100 mg PO DAILY 12/24/17 [History] Follow up Appointment(s)/Referral(s): Nonstaff,Physician [Primary Care Provider] - 1-2 days Ace Enriquez MD [STAFF PHYSICIAN] - 1 Week Patient Instructions/Handouts: How to Stop Smoking (GEN), Dehydration (GEN), Cigarette Smoking and Your Health (GEN), Anorexia in Older Adults (GEN) Activity/Diet/Wound Care/Special Instructions: Eat 3 meals a day or small 5 meals throughout the day. Call Thursday to make a follow up with your primary director day care center.
== END 2017-12-27 14:28 | disposition home or self-care (01) | DRG 391 ==
LOC: EC 15:50 → 4MS4W 21:05 → OBSVTOIN 12-25 14:13
PROVIDERS: ADMIT Internal Medicine; ATTEND Internal Medicine
PROC: 0DB78ZX Excision of Stomach, Pylorus, Via Natural or Artificial Opening Endoscopic, Diagnostic (ICD-10-PCS; principal; 2017-12-27 08:30)
DX: K29.60 Other gastritis without bleeding (principal); E43 Unspecified severe protein-calorie malnutrition; R64 Cachexia; Z68.1 Body mass index [BMI] 19.9 or less, adult; F33.9 Major depressive disorder, recurrent, unspecified; E86.0 Dehydration; R62.7 Adult failure to thrive; K59.09 Other constipation; I95.1 Orthostatic hypotension; I10 Essential (primary) hypertension; G89.29 Other chronic pain; Z71.3 Dietary counseling and surveillance; I25.10 Atherosclerotic heart disease of native coronary artery without angina pectoris; F17.210 Nicotine dependence, cigarettes, uncomplicated; Z71.6 Tobacco abuse counseling; Z79.899 Other long term (current) drug therapy; Z90.49 Acquired absence of other specified parts of digestive tract; Z86.010 Personal history of colon polyps; Z88.0 Allergy status to penicillin; Z80.0 Family history of malignant neoplasm of digestive organs
CPT/HCPCS: 36415; 43239; 71046; 74018; 74177; 80048; 80053; 81001; 82150; 82533; 82550; 82553; 83605; 83690; 83735; 84100; 84134; 84443; 84484; 85025; 85027; 88305; 93005; 99285